=== PATIENT | female | born 1960 | race Caucasian/White ===

== ENCOUNTER 2018-04-20 13:24 | Emergency (ER) | payer MEDICAID ==
--- NOTE | 2018-04-20 14:13 | C.PDOC ---
History Of Present Illness 57-year-old female, presents to the emergency department with complaints of redness and swelling to the right third toe. Patient denies trauma, numbness/ weakness, fever. Time Seen by Provider: 04/20/18 13:36 Chief Complaint (Nursing): Lower Extremity Problem/Injury History Per: Patient History/Exam Limitations: no limitations Current Symptoms Are (Timing): Still Present Past Medical History Reviewed: Historical Data, Nursing Documentation, Vital Signs Vital Signs: Last Vital Signs Temp 98.3 F 04/20/18 13:29 Pulse 87 04/20/18 13:29 Resp 20 04/20/18 13:29 BP 160/90 H 04/20/18 13:29 Pulse Ox 100 04/20/18 14:13 - Medical History PMH: Diabetes (NIDDM), HTN Family History: States: No Known Family Hx - Social History Hx Tobacco Use: No Hx Alcohol Use: No Hx Substance Use: No - Immunization History Hx Tetanus Toxoid Vaccination: No Hx Influenza Vaccination: No Hx Pneumococcal Vaccination: No Review Of Systems Constitutional: Negative for: Fever, Chills Cardiovascular: Negative for: Edema Gastrointestinal: Negative for: Nausea, Vomiting Skin: Negative for: Rash Neurological: Negative for: Weakness, Numbness Physical Exam - Physical Exam Appears: Non-toxic, No Acute Distress Skin: Normal Color, Warm, Dry, No Rash Head: Normacephalic Eye(s): bilateral: Normal Inspection Nose: Normal Oral Mucosa: Moist Lips: Normal Appearing Neck: Normal ROM Cardiovascular: Rhythm Regular, No Murmur Respiratory: Normal Breath Sounds, No Accessory Muscle Use Extremity: No Deformity, Other (right lower extremity, third digit: echymosis above the cuticle line. distal toe intact) Neurological/Psych: Oriented x3, Normal Speech ED Course And Treatment O2 Sat by Pulse Oximetry: 100 Pulse Ox Interpretation: Normal - Other Rad R 3 TOE X-Ray: Interpreted by Me (NEG) Disposition Counseled Patient/Family Regarding: Studies Performed, Diagnosis, Need For Followup, Rx Given - Disposition Referrals: [facility] [Outside] [facility] [Outside] Emily Huffman DPM [Staff Provider] - Disposition: HOME/ ROUTINE Disposition Time: 14:12 Condition: IMPROVED Prescriptions: Ibuprofen [Motrin] 600 mg PO Q6 #30 tab Instructions: Toe Injury (DC) Forms: [facility] (Korean) - Clinical Impression Clinical Impression: Toe contusion - Scribe Statement The provider has reviewed the documentation as recorded by the Scribe (Agustín Wade) All medical record entries made by the Scribe were at my direction and personally dictated by me. I have reviewed the chart and agree that the record accurately reflects my personal performance of the history, physical exam, medical decision making, and the department course for this patient. I have also personally directed, reviewed, and agree with the discharge instructions and disposition. Orthopedic Care Application Of:: Toe-elena tape
[2018-04-20 14:26] VITALS: BP 130/72; PULSE 75; RESP 18; TEMP 98.9
[2018-04-20 14:29] VITALS: O2SAT 100
--- NOTE | 2018-04-20 15:24 | RAD ---
PROCEDURE: RIGHT 3RD DIGIT/FOOT RADIOGRAPHS HISTORY: swelling COMPARISON: None available. TECHNIQUE: Three views the right 3rd digit been submitted with single frontal view of the right foot. FINDINGS: No acute fracture or dislocation of the right 3rd digit is identified though joint space narrowing seen throughout all interphalangeal joints compatible with degenerative joint disease. No destructive bony lesion appreciable throughout. IMPRESSION: No acute fracture or dislocation right 3rd digit. Degenerative changes as discussed above.
== END 2018-04-20 14:28 | disposition home or self-care (01) ==
LOC: C.ER 13:24
DX: S90.121A Contusion of right lesser toe(s) without damage to nail, initial encounter (principal); X58.XXXA Exposure to other specified factors, initial encounter

== ENCOUNTER 2018-06-10 07:28 | Day surgery (SDC) | payer MEDICAID ==
--- NOTE | 2018-06-10 09:30 | CP.SDSHP ---
Same Day Surgery H & P - History Proposed Procedure: colonoscopy Pre-Op Diagnosis: screening average risk - Previous Medical/Surgical History Cardiac: Other (cholesterol) Endocrine/Metabolic: Diabetes Previous Surgical History: none - Allergies Allergies: Allergies No Known Allergies Allergy (Verified 06/09/18 09:37) - Current Medications Current Medications: reviewed, per RN notes - Physical Exam General Appearance: wdwn nad Vital Signs: Vital Signs 06/10/18 07:40 Temperature 97.7 F Pulse Rate 77 Respiratory 19 Rate Blood Pressure 149/73 O2 Sat by Pulse 99 Oximetry Mental Status: Alert & Oriented x3 Heart: WNL Lungs: WNL GI: WNL - {Optional Preform as Required} Breast: WNL - Impression Impression: colon screening Pt. Evaluated Today:Candidate for Anesthesia & Procedure: Yes - Date & Time Date: 06/10/18 Time: 09:30 Short Stay Discharge - Short Stay Discharge Admitting Diagnosis/Reason for Visit: ENCOUNTER FOR SCREENING FOR MALIGNANT NEOPLASM OF Disposition: HOME/ ROUTINE
[2018-06-10] MEDS ORDERED: Lactated Ringer's 1,000 ML IV ONE (09:31)
[2018-06-10] MEDS ORDERED: Propofol 10 mg/ml Inj (20 ML) ONE (09:31)
[2018-06-10 10:09] VITALS: TEMP 98.6; O2SAT 100
[2018-06-10 10:50] VITALS: BP 120/61; PULSE 61; RESP 14
== END 2018-06-10 10:46 | disposition home or self-care (01) ==
LOC: C.ENDO 07:28
PROVIDERS: ATTEND Internal Medicine Gastroenterology
DX: K64.8 Other hemorrhoids (principal)
CPT/HCPCS: 45378; 82948; J2704; J7120

== ENCOUNTER 2018-07-01 15:19 | Emergency (ER) | payer MEDICAID ==
[2018-07-01 15:37] VITALS: BMI 29.2
--- NOTE | 2018-07-01 16:32 | RAD ---
Date of service: 07/01/2018 PROCEDURE: Right Index finger radiographs. HISTORY: r/o fx COMPARISON: None. TECHNIQUE: AP radiograph of the right hand, as well as spot oblique and lateral images of index finger were obtained. FINDINGS: RIGHT INDEX FINGER: There is a faint ossific density near the distal aspect of the proximal phalanx of the 2nd digit. Remainder of the right hand (as seen on the AP view) grossly intact. JOINTS: Normal. SOFT TISSUES: Mild soft tissue swelling in the proximal 2nd digit. OTHER FINDINGS: None. IMPRESSION: Faint or ossific density adjacent to the distal aspect of the proximal phalanx of the 2nd digit may represent a small chip fracture. Also noted is mild soft tissue swelling in the proximal 2nd digit.
--- NOTE | 2018-07-01 17:33 | C.PDOC ---
History Of Present Illness 57 y/o female presents to the ED complaining of right 2nd finger pain for 1 week. States that last week she was picking up an object, when she felt sudden onset of pain in the 2nd digit. Denies blunt trauma. She is right hand dominant. Patient otherwise denies any numbness, tingling, or focal weakness. Time Seen by Provider: 07/01/18 16:07 Chief Complaint (Nursing): Finger,Hand,&Wrist History Per: Patient History/Exam Limitations: no limitations Onset/Duration Of Symptoms: Days Current Symptoms Are (Timing): Still Present Past Medical History Reviewed: Historical Data, Nursing Documentation, Vital Signs - Medical History PMH: Diabetes (NIDDM), HTN, Hypercholesterolemia Denies: Chronic Kidney Disease Family History: States: Unknown Family Hx - Social History Hx Tobacco Use: No Hx Alcohol Use: No Hx Substance Use: No - Immunization History Hx Tetanus Toxoid Vaccination: No Hx Influenza Vaccination: No Hx Pneumococcal Vaccination: No Review Of Systems Except As Marked, All Systems Reviewed And Found Negative. Musculoskeletal: Positive for: Hand Pain (right 2nd digit pain) Skin: Negative for: Lesions, Bruising Neurological: Negative for: Weakness, Numbness, Incoordination Physical Exam - Physical Exam Appears: Non-toxic, No Acute Distress Skin: Normal Color, Warm, No Rash Head: Atraumatic, Normacephalic Eye(s): bilateral: Normal Inspection Oral Mucosa: Moist Neck: Normal ROM, Supple Chest: Symmetrical Extremity: Tenderness (to touch over the PIP joint of right digit), Capillary Refill (< 2 sec), No Deformity, Swelling (over the PIP of right 2nd digit) Pulses: Left Radial: Normal, Right Radial: Normal Neurological/Psych: Oriented x3, Normal Speech, Normal Motor, Normal Sensation ED Course And Treatment - Other Rad x-ray right 2nd digit X-Ray: Viewed By Me, Read By Radiologist Interpretation: FINDINGS: RIGHT INDEX FINGER: There is a faint ossific density near the distal aspect of the proximal phalanx of the 2nd digit. Remainder of the right hand (as seen on the AP view) grossly intact. JOINTS: Normal. SOFT TISSUES: Mild soft tissue swelling in the proximal 2nd digit. OTHER FINDINGS: None. IMPRESSION: Faint or ossific density adjacent to the distal aspect of the proximal phalanx of the 2nd digit may represent a small chip fracture. Also noted is mild soft tissue swelling in the proximal 2nd digit. Medical Decision Making Medical Decision Making: Impression: 57 year old with finger pain Plan: --X-ray right hand 2nd digit Patient informed of (+) fracture on x-ray. Finger splint was applied. Patient is stable for discharge home. Counseled regarding diagnosis and the importance of following up with hand specialist for further evaluation. Disposition Counseled Patient/Family Regarding: Studies Performed, Diagnosis, Need For Followup, Rx Given - Disposition Referrals: Varun Timmons MD [Staff Provider] - Disposition: HOME/ ROUTINE Disposition Time: 16:30 Condition: STABLE Additional Instructions: BETH FRANKLIN, thank you for letting us take care of you today. Your provider was Conrad Johnson DO and you were treated for RT FINGER PAIN. The emergency medical care you received today was directed at your acute symptoms. If you were prescribed any medication, please fill it and take as directed. It may take several days for your symptoms to resolve. Return to the Emergency Department if your symptoms worsen, do not improve, or if you have any other problems. Please contact your doctor or call one of the physicians/clinics you have been referred to that are listed on the Patient Visit Information form that is included in your discharge packet. Bring any paperwork you were given at discharge with you along with any medications you are taking to your follow up visit. Our treatment cannot replace ongoing medical care by a primary care provider outside of the emergency department. Thank you for allowing the [facility] team to be part of your care today. Follow up with Dr. Timmons, the hand surgeon, in 3-5 days for re-evaluation and further management. Prescriptions: Ibuprofen [Motrin] 600 mg PO Q6 PRN #20 tab PRN Reason: Pain, Moderate (4-7) Instructions: Finger Fracture (DC) Forms: [facility] (Nepali) - POA Present On Arrival: None - Clinical Impression Clinical Impression: Fracture of finger - Scribe Statement The provider has reviewed the documentation as recorded by the Scribe (Tigist Velazquez) Provider Attestation: All medical record entries made by the Scribe were at my direction and personally dictated by me. I have reviewed the chart and agree that the record accurately reflects my personal performance of the history, physical exam, medical decision making, and the department course for this patient. I have also personally directed, reviewed, and agree with the discharge instructions and disposition.
== END 2018-07-01 17:04 | disposition home or self-care (01) ==
LOC: C.ER 15:19
DX: S62.610A Displaced fracture of proximal phalanx of right index finger, initial encounter for closed fracture (principal); X58.XXXA Exposure to other specified factors, initial encounter; E11.9 Type 2 diabetes mellitus without complications; I10 Essential (primary) hypertension; E78.00 Pure hypercholesterolemia, unspecified

== ENCOUNTER 2018-07-28 14:31 | Emergency (ER) | payer MEDICAID ==
[2018-07-28 14:31] VITALS: BMI 29.2
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
--- NOTE | 2018-07-28 15:50 | CT ---
Date of service: 07/28/2018 PROCEDURE: CT HEAD WITHOUT CONTRAST. HISTORY: injury COMPARISON: None available. TECHNIQUE: Axial computed tomography images were obtained through the head/brain without intravenous contrast. Radiation dose: Total exam DLP = 861.76 mGy-cm. This CT exam was performed using one or more of the following dose reduction techniques: Automated exposure control, adjustment of the mA and/or kV according to patient size, and/or use of iterative reconstruction technique. FINDINGS: HEMORRHAGE: No intracranial hemorrhage. BRAIN: Normal ryan-white matter differentiation and density are appreciated throughout the cerebrum and cerebellum with the brainstem appearing unremarkable as well. There is no mass effect. There is no suspicious extra-axial fluid collection and the midline brain anatomy appears diffusely unremarkable. VENTRICLES: Unremarkable. No hydrocephalus. CALVARIUM: No destructive bony lesion or displaced fracture identified including through the skullbase. PARANASAL SINUSES: Unremarkable as visualized. No significant inflammatory changes. MASTOID AIR CELLS: Unremarkable as visualized. No inflammatory changes. OTHER FINDINGS: None. IMPRESSION: Unremarkable CT of the Head.
--- NOTE | 2018-07-28 15:56 | CT ---
Date of service: 07/28/2018 PROCEDURE: CT MAXILLOFACIAL BONES WITHOUT CONTRAST HISTORY: injury COMPARISON: None available. TECHNIQUE: Contiguous axial CT images of the maxillofacial bones were obtained. Coronal and sagittal reformats were generated. Radiation dose: Total exam DLP = 773.09 mGy-cm. This CT exam was performed using one or more of the following dose reduction techniques: Automated exposure control, adjustment of the mA and/or kV according to patient size, and/or use of iterative reconstruction technique. FINDINGS: NASAL BONES: Unremarkable. ORBITS: Unremarkable. PARANASAL SINUSES/ MASTOIDS: Clear. MAXILLA: Unremarkable. MANDIBLE/ TEMPOROMANDIBULAR JOINTS: Unremarkable. SKULL BASE: Unremarkable. TEMPORAL BONES: Middle ears and mastoid grossly unremarkable. OTHER FINDINGS: Minimal left frontal scalp edema in question. IMPRESSION: No fracture or destructive bony lesion involves the maxillofacial bones. Minimal left frontal scalp edema in question.
[2018-07-28 15:58] VITALS: BP 131/74; PULSE 80; RESP 18; TEMP 98.5
[2018-07-28 16:00] VITALS: O2SAT 96
== END 2018-07-28 16:15 | disposition home or self-care (01) ==
LOC: C.ER 14:31
DX: S00.83XA Contusion of other part of head, initial encounter (principal); Y04.0XXA Assault by unarmed brawl or fight, initial encounter; Y92.009 Unspecified place in unspecified non-institutional (private) residence as the place of occurrence of the external cause; E11.9 Type 2 diabetes mellitus without complications; I10 Essential (primary) hypertension; E78.00 Pure hypercholesterolemia, unspecified

== ENCOUNTER 2019-03-24 09:38 | Outpatient (CLI) | payer MEDICAID | END 2019-03-24 09:39 | disposition home or self-care (01) | LOC: C.MAMMO 09:39 ==